=== PATIENT | female | born 1990 | race American Indian/Alaskan Native ===

== ENCOUNTER 2021-08-29 21:21 | Emergency (ER) | payer OTHER ==
[2021-08-29] MEDS: Acetaminophen/HYDROcodone 325-5 MG Tab PO ONE (22:39)
[2021-08-29] MEDS: Acetaminophen 500 MG Tab PO ONE (22:39)
[2021-08-29] MEDS: Lisinopril 10 MG Tab PO ONE (22:40)
== END 2021-08-29 23:20 | disposition home or self-care (01) ==
LOC: FB.ED 21:21
DX: S69.92XA Unspecified injury of left wrist, hand and finger(s), initial encounter (principal); I16.0 Hypertensive urgency; Z88.8 Allergy status to other drugs, medicaments and biological substances; Z79.899 Other long term (current) drug therapy; W22.09XA Striking against other stationary object, initial encounter
CPT/HCPCS: 73140-FA; 99283; A9270-GY